=== PATIENT | female | born 1940 | race Caucasian/White ===

== ENCOUNTER 2019-03-11 07:27 | Day surgery (SDC) | payer OTHER ==
[~2019-03-11] VITALS: Ht 152.4 cm; Wt 61.7 kg
[2019-03-11 09:02] VITALS: BP 125/77
[2019-03-11 13:47] VITALS: BP 112/82
== END 2019-03-11 12:20 | disposition home or self-care (01) ==
LOC: GI 07:27 → OR 10:30 → GI 10:30
PROVIDERS: Internal Medicine
PROC: 0DJD8ZZ Inspection of Lower Intestinal Tract, Via Natural or Artificial Opening Endoscopic (ICD-10-PCS; principal; 2019-03-11 10:30)
DX: K57.30 Diverticulosis of large intestine without perforation or abscess without bleeding (principal); D50.9 Iron deficiency anemia, unspecified; Z68.25 Body mass index [BMI] 25.0-25.9, adult
CPT/HCPCS: 45378; J1200; J1610; J2175; J2250; J2310; J3010; J3490